=== PATIENT | female | born 1975 | race Two or more races ===

== ENCOUNTER 2023-04-07 10:08 | Emergency (ER) | payer OTHER, BC ==
[2023-04-07 10:39] VITALS: BP 133/77; PULSE 80; RESP 18; TEMP 99.2; BMI 22.4
== END 2023-04-07 10:44 | disposition home or self-care (01) ==
LOC: FER 10:08
DX: T19.2XXA Foreign body in vulva and vagina, initial encounter (principal)
CPT/HCPCS: 99283-25; 99284-25